=== PATIENT | female | born 1985 | race African-American/Black ===

== ENCOUNTER 2017-07-05 20:11 | Emergency (ER) | payer MEDICAID, SELFPAY ==
[2017-07-05 20:12] VITALS: BP 126/81; PULSE 94; RESP 17; TEMP 36.4; O2SAT 98; BMI 29.6
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
[2017-07-05 21:37] VITALS: PULSE 84; RESP 16
== END 2017-07-05 21:37 | disposition home or self-care (01) ==
PROVIDERS: Emergency Provider Emergency Medicine
DX: S16.1XXA Strain of muscle, fascia and tendon at neck level, initial encounter (principal); S00.33XA Contusion of nose, initial encounter; S39.012A Strain of muscle, fascia and tendon of lower back, initial encounter; V43.52XA Car driver injured in collision with other type car in traffic accident, initial encounter; Y93.9 Activity, unspecified; Y92.410 Unspecified street and highway as the place of occurrence of the external cause; Y99.9 Unspecified external cause status
CPT/HCPCS: 99282

== ENCOUNTER 2018-05-21 01:32 | Emergency (ER) | payer MEDICAID, SELFPAY ==
[2018-05-21 01:33] VITALS: BP 128/77; PULSE 90; RESP 16; TEMP 36.6; O2SAT 98; BMI 30.9
--- NOTE | 2018-05-21 01:45 | CT_ITS ---
HISTORY: PT STATED HEADACHE X 2 WEEKS, NO INJURY TECHNIQUE: Multiple axial images were obtained of the brain without intravenous contrast. A radiation dose optimization technique was used for this scan. IV Contrast dosage and agent: None. COMPARISON: None FINDINGS: Normal ventricles and normal jones-white matter differentiation. No intracranial mass, hemorrhage, or acute parenchymal abnormality. Posterior fossa structures are unremarkable. No suspicious extra-axial fluid collection. The calvarium appears intact. As visualized, the mastoids and parent sinuses appear clear. CT/Brain/Head without Contrast IMPRESSION: Normal CT brain without contrast. Individualized dose optimization techniques were used for this CT. at 0358 Reported and signed by: Sterling Rodriguez MD Electronically Signed: Sterling Rodriguez, at 3:57 EDT Tel , Service support ,
[2018-05-21] MEDS: DiphenhydrAMINE 50 MG/ML Syringe 25 MG IV (02:00)
[2018-05-21] MEDS: 0.9% Normal Saline 1,000 ML 1000 ML IV (02:00)
[2018-05-21] MEDS: Ketorolac 30 MG/ML Syringe IV (02:02)
[2018-05-21] MEDS: Metoclopramide 10 MG/2 ML Vial IV (02:03)
--- NOTE | 2018-05-21 04:11 | ED.VISSUMM ---
- ER Visit Summary Date of Service: 05/21/18 Chief Complaint: [Headache] History of Present Illness: The patient is a 32 F [presents the emergency department complaint of a headache for a week. Patient states it came on gradually. Patient describes the pain throughout her entire head and also into her face. Patient states the pains in the back of her head as well and into the upper neck. She has had nausea but no vomiting. She does complain of some photophobia. Intermittent spells of feeling lightheaded or woozy. She does describe some subjective fever and chills 2 days ago. She has had no urinary symptoms. She denies cough or sore throat. She denies dental pain. She denies nasal drainage. She is had no falls or head injuries.] No concern for carbon monoxide poisoning. Physical Examination: [HEENT-PERRLA, EOMI. Cranial nerves II through XII grossly intact. TMs clear. Mucous membranes moist. No adenopathy. Cardiovascular-regular rate and rhythm without murmur or ectopy Lungs-clear to auscultation, chest wall stable without crepitus or subcu emphysema Abdomen-normoactive bowel sounds, soft, nontender, no rebound or rigidity, no peritoneal signs. Neuro fdpl-[id number]-ihna and heel khoury testing within normal limits, negative Romberg, negative for drift, fundi benign Extremities-intact ?4, normal range of motion, normal pulses, atraumatic] Test Results: CT scan of the brain without contrast was normal. [] Emergency Department Course and Treatment: [Patient was given a liter normal saline as well as Benadryl, Toradol, and Reglan. Headache improved to about a 5 or 6 out of 10 and she did not want anything further for pain.] Treatment Plan: [Patient will be referred to neurology for follow-up. Patient did not want anything for pain for home.] Disposition: [Discharged home in stable condition] Impression: [Cephalgia-etiology uncertain] This note was generated with [employer] dictation software. It may contain incorrect words, spelling, and punctuation that were not noted in review of the chart prior to signing ED Disposition - Plan for ED Patient: Referrals: Care Physician,No Primary [Primary Care Provider] -
--- NOTE | 2018-05-21 04:13 | ED.DEP ---
ED Disposition - Plan for ED Patient: Instructions: ED Cephalgia Unspecified Referrals: Care Physician,No Primary [Primary Care Provider] - Marlene Michaels MD [STAFF PHYSICIAN] - 3-5 Days
[2018-05-21 04:26] VITALS: BP 120/77; PULSE 71; RESP 16; O2SAT 98
== END 2018-05-21 05:00 | disposition home or self-care (01) ==
PROVIDERS: Emergency Provider Emergency Medicine
DX: R51 Headache (principal); H53.149 Visual discomfort, unspecified
CPT/HCPCS: 70450; 96361; 96374; 96375; 99283